=== PATIENT | female | born 1985 | race African-American/Black ===

== ENCOUNTER 2023-07-15 11:12 | Emergency (ER) | payer OTHER, SELFPAY ==
--- NOTE | ~2023-07-15 | US_ITS ---
EXAMINATION: US OBSTETRICAL ULTRASOUND CLINICAL INFORMATION: Vaginal spotting and suprapubic pain during . LMP of 05/26/2023. Gestational age based on LMP is 7 weeks, 1 day with estimated date of delivery of 03/01/2024. COMPARISON: None available. TECHNIQUE: Sonographic imaging of the pelvis is performed using transabdominal and transvaginal transducers. FINDINGS: Single viable intrauterine gestation is identified. A normal decidual reaction is seen around the gestational sac within the endometrial cavity. There is a normal 0.4 cm yolk sac. The embryo is small and difficult to accurately measure. It has an estimated length of approximately 0.26 cm, suggesting gestational age of 5 weeks, 6 days, and estimated date of delivery of 03/10/2024. heart rate is 90 bpm. A small somewhat crescentic shaped subchorionic bleed measures 0.4 x 0.9 x 0.6 cm. There are a few nabothian cysts of the cervix. A hypoechoic well-circumscribed 2.9 x 2.4 x 2.7 cm intramural leiomyoma is present within the uterine body. MATERNAL ADNEXA: The right ovary is 2.5 x 2.5 x 2.2 cm and left ovary 3 x 3.7 x 2.8 cm. There appears to be a 1.4 x 0.9 x 1.6 cm corpus luteum of the left ovary. A simple cyst within the left ovary measures up to 3.3 cm. No imaging follow-up is recommended for this simple cyst. No free fluid within the pelvic cul-de-sac. US/US OB pelvic and transvaginal IMPRESSION: * Single viable intrauterine gestation is present. The AUA is 5 weeks, 6 days, and estimated date of delivery 03/10/2024. * There is a small subchorionic hemorrhage. * No evidence of ectopic . No pelvic free fluid.
[2023-07-15 11:46] VITALS: BP 129/79; PULSE 80; RESP 16; TEMP 36.7; O2SAT 98; BMI 36.5
--- NOTE | 2023-07-15 11:48 | ED_ITS ---
HPI - General Chief complaint: Vaginal Bleeding Stated complaint: fell 7 wks Time Seen by Provider: 07/15/23 16:36 Source: patient Mode of arrival: ambulatory Limitations: no limitations History of Present Illness HPI Narrative: Patient is a 38-year-old female A1 presenting to the emergency department with complaint of vaginal spotting/bleeding after a slip and fall on ice earlier today. States that she slipped and fell directly onto her buttocks and bleeding began after this. She denies head strike or loss of consciousness. She has not anticoagulated. History of 1 miscarriage in the past. Last menstrual period was 05/25/2023. States that she recently moved to this area and does not currently have an GANG BORE OPERATOR here. She reports mild suprapubic discomfort but denies abdominal pain. Denies any nausea, vomiting, diarrhea. States she has not gone through more than 1 pad since onset of bleeding today. Patient states she is Rh positive. MD Complaint: vaginal bleeding Onset (ago): hour(s) Pain Consistency: colicky Location: abdomen Severity: mild Quality: Cramping Associated symptoms: vaginal bleeding Vaginal bleeding: light Date of Last Menstrual Period: 05/25/23 Patient : Yes OB History - Previous Pregnancies: miscarriage care: previous ultrasound confirms IUP Related Data Allergies Allergy/AdvReac Type Severity Reaction Status Date / Time Penicillins [PCN] Allergy Unknown Verified 07/15/23 11:45 Review of Systems 2 Review of Systems: As per HPI. Yes all other systems are reviewed and are negative Constitutional: Constitutional: Reports as per HPI [facility] Past Medical History Date of Last Menstrual Period: 05/25/23 Social History Social History Advance Directives: No Patient : Yes Physical Exam 2 Vital Signs: Vital Signs: Last Vital Signs Temp 98.7 F 07/15/23 15:35 Pulse 74 07/15/23 15:35 Resp 20 07/15/23 15:35 BP 133/67 07/15/23 15:35 Pulse Ox 99 07/15/23 15:35 O2 Del Method Room Air 07/15/23 15:35 BMI result Body Mass Index 36.5 Vital signs have been reviewed and appear to be correct. Blood pressure normal. Heart rate normal. Respiratory rate normal. Temperature normal. Oxygen saturation normal. Const: General: cooperative, healthy appearing and no acute distress O rientation/consciousness: oriented to person, oriented to place, oriented to time and patient oriented x3 Limitations: no limitations HEENT: Head: Yes normocephalic and Yes atraumatic Ears: external ears normal General nose exam: Normal external nose present Face and sinus: Yes face symmetric Mouth: oropharynx normal and moist mucous membranes T hroat: Yes uvula midline Eyes: Pupils: Equal, round and reactive pupils present Neck: Neck: Yes normal visual inspection and Yes supple Resp: Effort & Inspection: normal respiratory effort and able to speak in complete sentences Auscultation: clear to auscultation bilaterally Cardio: Rate: regular rate Rhythm: regular rhythm Heart sounds: S1 normal heart sound present and S2 normal heart sound present GI: Palpation (GI): Soft to palpation and nontender Auscultation: n ormoactive bowel sounds : General: Yes no CVA tenderness Back/Spine/Pelvis: Back: no CVA tenderness Skin: General skin exam: elasticity normal and turgor normal Neuro: General: oriented to person, oriented to place, oriented to time, patient oriented x3, moves all extremities, no focal motor deficits and CN's II- XI intact bilaterally Cranial nerves: Yes Equal, round and reactive pupils present Cognition (Neuro): normal cognition Extrem: General: Yes full ROM, Yes no pedal edema and Yes no calf tenderness Psych: Mental Status: mental status grossly normal Affect: normal affect Thought process: Normal thought process present Course Course Course Narrative: This is an RME: Additional HPI, ROS, PE not included below will be deferred to primary provider. This is a [id number]-female, with C-sections x4, , 7 week , pancreatitis,female, presenting to the ER with a complaint of suprapubic cramping and vaginal spotting starting today. She states that she slipped on ice and fell backwards and landed on her buttocks at around 7:30 a.m. this morning. She states that shortly after she noticed some suprapubic cramping and spotting. She states that she has not established OBGYN care at this time. She has had an ultrasound in the past of this with normal findings. Last menstrual period May 26 Plan: Labs, ultrasound Medical Decision Making Medical Decision Making MDM Narrative: Patient is a 38-year-old female A1 presenting to the emergency department with complaint of vaginal spotting/bleeding after a slip and fall on ice earlier today. On exam patient is awake, A+Ox3, VS WNL, afebrile, normal neurological exam without focal deficits, physical exam findings as above. Given reported symptoms and physical exam findings, initial differential includes threatened , ectopic , complete loss. Labs notable for mild anemia, no significant electrolyte abnormalities, no evidence of FRAN, normal LFTs. Rh positive, Rhogam not indicated. Ultrasound notable for single viable intrauterine with heart rate of 90 beats per minute, small subchorionic hemorrhage, no evidence of ectopic . My interpretation is in agreement with the radiologist's interpretation. Results discussed with patient and all questions answered. Will refer patient to Dr. Xavier as she does not currently have an GANG BORE OPERATOR. Return precautions discussed at bedside. Patient verbalized understanding of and agreement with plan. Differential Diagnosis Differential Diagnoses: The differential diagnosis associated with the presentation includes As per MDM. Lab Data [facility] Lab Attestation statement: I reviewed the patient's lab results. As per [facility]. 07/15/23 11:59 07/15/23 11:59 Labs: Lab Results 07/15/23 07/15/23 07/15/23 Range/Units 11:54 11:59 15:41 WBC 9.6 (4.8-10.8) X10*3/uL RBC 4.30 (4.20-5.50) X10*6/uL Hgb 11.1 L (12.0-16.0) g/dl Hct 35.1 L (37.0-47.0) % MCV 81.6 (80.0-98.0) fL MCH 25.8 L (27.0-33.0) pg MCHC 31.6 (31.0-35.0) g/dl RDW 16.2 H (11.0-16.0) % Plt Count 245 (160-400) X10*3/uL MPV 10.8 (9.4-12.3) fL Immature Gran % (Auto) 0.5 H (0.0-0.4) % Neut % (Auto) 53.8 (45-73) % Lymph % (Auto) 35.5 (20-40) % Green % (Auto) 7.4 (2-11) % Eos % (Auto) 2.0 (0-4) % Baso % (Auto) 0.8 (0-2) % Lymph # (Auto) 3.4 (1.2-4.9) X10*3/uL Green # (Auto) 0.7 (0.1-1.2) X10*3/uL Eos # (Auto) 0.2 (0.0-0.4) X10*3/uL Baso # (Auto) 0.1 (0.0-0.2) X10*3/uL Abs Immat Gran (auto) 0.05 H (0.00-0.03) X10*3/uL Absolute Neuts (auto) 5.2 (2.0-8.3) x10*3/uL Absolute Nucleated RBC 0.000 (0.0-0.012) X10*3/uL Nucleated RBC % (auto) 0.0 (0.0-0.2) /100WBC Sodium 135 (135-145) mmol/L Potassium 4.2 (3.3-5.1) mmol/L Chloride 104 (96-108) mmol/L Carbon Dioxide 23 (22-29) mmol/L Anion Gap 12 (12-20) BUN 11 (9-16) mg/dL Creatinine 0.84 (0.5-1.4) mg/dL Estim Creat Clear Calc 110.8 Estimated GFR > 60 POC Glucose 138 H 152 H (60-115) mg/dL Random Glucose 138 H (60-115) mg/dL Calcium 9.5 (8.4-10.2) mg/dL Total Bilirubin 0.3 (0.0-1.0) mg/dL Direct Bilirubin 0.1 (0.0-0.5) mg/dL AST 12 (5-31) U/L ALT 11 (0-31) U/L Alkaline Phosphatase 58 (39-117) U/L Total Protein 7.8 (6.5-8.0) g/dL Albumin 4.0 (3.5-5.0) g/dL Beta HCG, Quant 15694 mIU/mL Blood Type AB Positive Independent Interpretation I performed an independent interpretation of an: Ultrasound Interpretation: single viable intrauterine with heart rate of 90 beats per minute, small subchorionic hemorrhage, no evidence of ectopic Radiology Impression Discussion of test interpretation with radiology: I have reviewed the radiologist's reading. Radiologist Impression: US/US OB pelvic and transvaginal IMPRESSION: * Single viable intrauterine gestation is present. The AUA is 5 weeks, 6 days, and estimated date of delivery 03/10/2024. * There is a small subchorionic hemorrhage. * No evidence of ectopic . No pelvic free fluid. External Record Review External record reviewed: Inpatient record, Office record and Outpatient record Discharge Plan Discharge Clinical Impression: Threatened Patient Disposition: Home, Self-Care Instructions: Threatened Miscarriage (ED) Additional Instructions: You were evaluated in the emergency department for vaginal bleeding during . It is possible that you are having a miscarriage. You are being referred to Dr. Xavier, G[employer] for further management. Please call his office to schedule an appointment. Return to the emergency department if you are bleeding through more than one pad per hour, have severe abdominal pain/cramping, persistent vomiting, fever 100.4F or greater or any other concerning symptoms. Referrals: Arcadio Xavier MD [Physician] - Stand Alone Forms: Work/School Release
[2023-07-15 11:58] LABS: Glucose, Whole Blood 138 mg/dL (60-115)
[2023-07-15 12:03] LABS: MANUAL DIFF FLAG NO
[2023-07-15 12:07] LABS: Basophils Absolute Auto 0.1 X10*3/uL (0.0-0.2); Basophils Percent Auto 0.8 % (0-2); Eosinophils Absolute Auto 0.2 X10*3/uL (0.0-0.4); Hematocrit 35.1 % (37.0-47.0); Hemoglobin 11.1 g/dl (12.0-16.0); Imm Gran Abs Auto 0.05 X10*3/uL (0.00-0.03); Imm Gran Pct Auto 0.5 % (0.0-0.4); Lymphocytes Absolute Auto 3.4 X10*3/uL (1.2-4.9); Lymphocytes Percent Auto 35.5 % (20-40); Mean Corpuscular HGB Conc 31.6 g/dl (31.0-35.0); Mean Corpuscular Hemoglobin 25.8 pg (27.0-33.0); Mean Corpuscular Volume 81.6 fL (80.0-98.0); Mean Platelet Volume 10.8 fL (9.4-12.3); Monocytes Absolute Auto 0.7 X10*3/uL (0.1-1.2); Monocytes Percent Auto 7.4 % (2-11); Neutrophils Absolute Auto 5.2 x10*3/uL (2.0-8.3); Neutrophils Percent Auto 53.8 % (45-73); Platelet Count 245 X10*3/uL (160-400); Red Cell Distribution Width 16.2 % (11.0-16.0); White Blood Count 9.6 X10*3/uL (4.8-10.8)
[2023-07-15 12:37] LABS: Alanine Aminotransferase 11 U/L (0-31); Alkaline Phosphatase 58 U/L (39-117); Anion Gap 12 (12-20); Aspartate Amino Transferase 12 U/L (5-31); Bilirubin Direct 0.1 mg/dL (0.0-0.5); Bilirubin Total 0.3 mg/dL (0.0-1.0); Blood Urea Nitrogen 11 mg/dL (9-16); Calcium 9.5 mg/dL (8.4-10.2); Carbon Dioxide 23 mmol/L (22-29); Chloride 104 mmol/L (96-108); Creatinine Clr Calc Pharmacy 110.8; Estimated Glomerular Filt Rate > 60; Glucose Random 138 mg/dL (60-115); Potassium 4.2 mmol/L (3.3-5.1); Sodium 135 mmol/L (135-145); Total Protein 7.8 g/dL (6.5-8.0)
[2023-07-15 15:35] VITALS: BP 133/67; PULSE 74; RESP 20; TEMP 37.1; O2SAT 99
[2023-07-15 15:46] LABS: Glucose, Whole Blood 152 mg/dL (60-115)
[2023-07-15 17:32] VITALS: BP 132/73; PULSE 84; RESP 16; TEMP 36.3; O2SAT 98
== END 2023-07-15 17:33 | disposition home or self-care (01) ==
PROVIDERS: Physician Assistant Medical; Emergency Provider Emergency Medicine
DX: O20.0 Threatened abortion (principal); Z3A.01 Less than 8 weeks gestation of pregnancy; Z79.899 Other long term (current) drug therapy
CPT/HCPCS: 36415; 76801; 76817; 80048; 80076; 82947; 84702; 85025; 86900; 86901; 99284